=== PATIENT | male | born 2000 | race Asian ===

== ENCOUNTER 2020-01-17 18:12 | Emergency (ER) | payer OTHER ==
[~2020-01-17] VITALS: Ht 152.4 cm; Wt 54.6 kg
[2020-01-17] MEDS ORDERED: LIDOCAINE 2% VISCOUS 15 ML SOLUTION. SWSW ONE (19:15)
[2020-01-17] MEDS ORDERED: ACETAMINOPHEN 500 MG TABLET PO ONE (19:15)
[2020-01-17] MEDS ORDERED: predniSONE 10 MG TABLET PO ONE (19:15)
--- NOTE | 2020-01-17 19:46 | PHYS DOC ---
Adult General Chief Complaint Chief Complaint: FEVER HPI HPI Patient is a 19-year-old male patient presenting to the ED today complaining of fever sore throat and shortness of breath that began today. Patient denies any coughing or congestion. Review of Systems Review of Systems Constitutional: Reports fever Eyes: Denies change in visual acuity, redness, or eye pain [] HENT: Reports sore throat. Denies nasal congestion Respiratory: Reports shortness of breath. Denies cough Cardiovascular: No additional information not addressed in HPI [] GI: Denies abdominal pain, nausea, vomiting, bloody stools or diarrhea [] : Denies dysuria or hematuria [] Musculoskeletal: Denies back pain or joint pain [] Integument: Denies rash or skin lesions [] Neurologic: Denies headache, focal weakness or sensory changes [] All other systems were reviewed and found to be within normal limits, except as documented in this note. Current Medications Current Medications Current Medications Medications (Trade) Dose Ordered Sig/Keisha Start Time Stop Time Status Last Admin Dose Admin Acetaminophen (Tylenol) 500 mg 1X ONCE 01/17/20 19:15 01/17/20 19:16 UNV Lidocaine HCl (Viscous Lidocaine) 15 ml 1X ONCE 01/17/20 19:15 01/17/20 19:16 UNV Prednisone (Prednisone) 50 mg 1X ONCE 01/17/20 19:15 01/17/20 19:16 UNV Physical Exam Physical Exam Constitutional: Well developed, well nourished, no acute distress, non-toxic appearance. [] HENT: Normocephalic, atraumatic, bilateral external ears normal, oropharynx moist, no oral exudates, nose normal. [] Eyes: PERRLA, EOMI, conjunctiva normal, no discharge. [] Neck: Normal range of motion, no tenderness, supple, no stridor. [] Cardiovascular:Heart rate regular rhythm, no murmur [] Lungs & Thorax: Bilateral breath sounds clear to auscultation [] Abdomen: Bowel sounds normal, soft, no tenderness, no masses, no pulsatile masses. [] Skin: Warm, dry, no erythema, no rash. [] Back: No tenderness, no CVA tenderness. [] Extremities: No tenderness, no cyanosis, no clubbing, ROM intact, no edema. [] Neurologic: Alert and oriented X 3, normal motor function, normal sensory fu nction, no focal deficits noted. [] Psychologic: Affect normal, judgement normal, mood normal. [] EKG EKG [] Radiology/Procedures Radiology/Procedures []PROCEDURE: PORTABLE CHEST 1V INDICATION: Reason: FEVER / Spl. Instructions: / History: COMPARISON: None. FINDINGS: Single view of chest obtained. Cardiac silhouette is unremarkable. No focal airspace consolidation or pulmonary edema. IMPRESSION: * No focal airspace consolidation or edema. Electronically signed by: Erasto Ruano MD (01/17/2020 8:20 PM) [id number] DICTATED AND SIGNED BY: ERASTO RUANO MD DATE: 01/17/202019 CC: JOHNNY BURDICK; SHIELA; FRANCIS RICHARDS APRN ~ Heart Score Risk Factors: Risk Factors: DM, Current or recent (<one month) smoker, HTN, HLP, family history of CAD, obesity. Risk Scores: Risk Factors: DM, Current or recent (<one month) smoker, HTN, HLP, family history of CAD, obesity. Course & Med Decision Making Course & Med Decision Making Pertinent Labs and Imaging studies reviewed. (See chart for details) This is a 19-year-old male patient presenting to the ED today with fever, shortness of breath and a sore throat that began today. Temperature in the ED 99.2. Blood pressure was noted in the 150s over 90s, patient denies any previous history of hypertension. Provided instructions to follow-up with the PCP Patient was tested for COVID-19, results will be called to him. Precautions provided including self quarantine Chest x-ray interpreted by radiologist as negative for any acute findings. Negative rapid strep is negative. Was discharged to home. Supportive care measures recommended at this point. Also recommended following up with her PCP for blood pressure management Dragon Disclaimer Dragon Disclaimer This electronic medical record was generated, in whole or in part, using a voice recognition dictation system. Departure Departure: Impression: Primary Impression: Person under investigation for COVID-19 Additional Impressions: Fever Shortness of breath High blood pressure Disposition: 01 DC HOME SELF CARE/HOMELESS Condition: STABLE Referrals: JOHNNY BURDICK (PCP) Follow-up with your doctor in the course of this week or next week Patient Instructions: Fever, Adult, Hypertension, Shortness of Breath Additional Instructions: You were evaluated in the emergency room, your chest x-ray was negative for any acute findings, your rapid strep test was negative for any acute findings. You were tested for COVID-19, quarantine yourself until you hear from us with the results. Maintain good hand hygiene. Wear your mask around other people. Push fluids. Follow-up with your doctor in 1 to 2 weeks. Scripts Prednisone (PREDNISONE) 50 Mg Tablet 1 TAB PO DAILY, #5 TAB Prov: FRANCIS RICHARDS APRN 01/17/20 Problem Qualifiers Additional Impressions: Fever Fever type: unspecified Qualified Codes: R50.9 - Fever, unspecified High blood pressure Hypertension type: unspecified Qualified Codes: I10 - Essential (primary) hypertension FRANCIS RICHARDS APRN Jan 17, 2020 19:46
[2020-01-17 20:23] VITALS: BP 150/90
--- NOTE | 2020-01-17 20:23 | RAD ---
INDICATION: Reason: FEVER / Spl. Instructions: / History: COMPARISON: None. FINDINGS: Single view of chest obtained. Cardiac silhouette is unremarkable. No focal airspace consolidation or pulmonary edema. IMPRESSION: * No focal airspace consolidation or edema. Electronically signed by: Dionicio Ruano MD (01/17/2020 8:20 PM) [id number]
[2020-01-17] MEDS ORDERED: PRED50TA PO (20:47)
== END 2020-01-17 21:00 | disposition home or self-care (01) ==
LOC: ER 18:12
DX: R50.9 Fever, unspecified (principal); R06.02 Shortness of breath; J02.9 Acute pharyngitis, unspecified; I10 Essential (primary) hypertension; Z20.828 Contact with and (suspected) exposure to other viral communicable diseases
CPT/HCPCS: 71045; 87070; 87880; 99284; C9803; J7512; U0003